=== PATIENT | female | born 1955 | race Caucasian/White ===

== ENCOUNTER → 2016-09-23 | Outpatient (CLI) | payer OTHER ==
--- NOTE | ~2016-09-23 | MY29 ---
[facility] A Service of [facility] RADIOLOGY TEXT RESULTS PATIENT: BOBBI MCKINNEY LOCATION: [facility] : 59 UNIT #: [id number] AGE: [address]: Silvina Singh MD SEX: F ORDER DR: [id number] [facility] [address] [place], [place] [address] [id number] O MR#: [id number] Acc #: [id number] NAME: BOBBI MCKINNEY : 1955 SEX: F STUDY DATE/TIME: 09/23/2016 15:20 UNIT: [facility] ROOM: STUDY DESCRIPTION: MY JULIOCESAR SCREENING W/ CAD BILAT Attending Physician: Silvina Singh M.D. Referring Physician: Silvina Singh M.D. Ordering Physician: Silvina Singh M.D. Primary Care Physician: Silvina Singh M.D. MEDICAL IMAGING REPORT This report is preliminary unless electronic signature is present EXAM Digital screening mammogram, 09/23/16, [facility]. HISTORY 61-year-old woman, positive family history, grandmother. Prior excision, left breast cyst. COMPARISON Mammograms date to 07/07/05, with most recent 02/11/15. FINDINGS Digital imaging of each breast was completed utilizing a two-view examination of each breast in craniocaudal and mediolateral-oblique projections. Review and interpretation of digital mammograms include a second review in conjunction with FDA-approved CAD device. There is a normal parenchymal presentation bilaterally consistent with the patient's age. There are no breast masses imaged and no parenchymal asymmetry is visualized. There are no suspicious microcalcifications and I see no focal architectural disturbance. IMPRESSION Negative screening digital mammogram. One-year followup recommended. Patients over the age of 40 are entered into a reminder system with target due date for the next mammogram. A result letter will also be sent to the patient. BIRADS: 1 Negative. Dictated by... Kaden Syed M.D. [facility] A Service of [facility] RADIOLOGY TEXT RESULTS PATIENT: BOBBI MCKINNEY LOCATION: [facility] : 59 UNIT #: [id number] AGE: [address]: Silvina Singh MD SEX: F ORDER DR: THIS IS AN ELECTRONICALLY VERIFIED REPORT Kaden Syed M.D. at 09/26/2016 8:12 AM Kaitlyn TD: 09/23/2016 18:16 JOB #: [id number] MEDICAL IMAGING REPORT Page 1 of 1 COPY
== END | disposition home or self-care (01) ==
LOC: CWCC 15:03
DX: Z12.31 Encounter for screening mammogram for malignant neoplasm of breast (principal); Z80.3 Family history of malignant neoplasm of breast
CPT/HCPCS: G0202